=== PATIENT | female | born 1955 | race Caucasian/White ===

== ENCOUNTER 2020-05-03 06:10 | Day surgery (SDC) | payer OTHER, SELFPAY ==
[~2020-05-03] VITALS: Ht 154.9 cm; Wt 126.1 kg
[2020-05-03] MEDS ORDERED: CEFAZOLIN SOD 1 GM in D5W 50 ML IV ONE (07:00)
[2020-05-03] MEDS ORDERED: DESFLURANE 15 MIN GAS INH ONE (08:56)
[2020-05-03] MEDS ORDERED: DEXAMETHASONE SOD PHOSPHATE 4 MG/ML VIAL IVP ONE ×2 (08:56)
[2020-05-03] MEDS ORDERED: KETOROLAC TROMETHAMINE 30 MG VIAL IVP ONE (08:56)
[2020-05-03] MEDS ORDERED: ROCURONIUM BROMIDE 10 MG/ML (ZEMURON) IV ONE (08:56)
[2020-05-03] MEDS ORDERED: LR 1,000 ML IV.SOLN IV ONE (08:56)
[2020-05-03] MEDS ORDERED: fentaNYL CITRATE 250 MCG/5 ML AMP IV ONE (08:56)
[2020-05-03] MEDS ORDERED: ISOSULFAN BLUE 5 ML VIAL (LYMPHAZURIN) INJ ONE (08:56)
[2020-05-03] MEDS ORDERED: BUPIVACAINE /PF 0.25% 30 ML VIAL INJ ONE (08:56)
[2020-05-03] MEDS ORDERED: SUGAMMADEX SODIUM 200 MG/2 ML VIAL IV ONE (08:56)
[2020-05-03] MEDS ORDERED: NS 1000 ML IV.SOLN IV ONE (08:56)
[2020-05-03] MEDS ORDERED: MIDAZOLAM HCL 5 MG/5 ML VIAL IVP ONE (08:56)
[2020-05-03] MEDS ORDERED: ONDANSETRON HCL 4 MG/2 ML VIAL IVP ONE (08:56)
[2020-05-03] MEDS ORDERED: PROPOFOL 200MG/ 20ML VIAL (DIPRIVAN) IV ONE ×2 (08:56)
[2020-05-03] MEDS ORDERED: HYDROmorphone 1 MG INJ. 1 MG/ML CARTRIDGE IVP PRN ×2 (10:00)
[2020-05-03] MEDS ORDERED: METOCLOPRAMIDE HCL 10 MG/2 ML VIAL IVP PRN (10:00)
[2020-05-03] MEDS ORDERED: MEPERIDINE HCL/PF 25 MG/ML DISP.SYRIN IVP PRN (10:00)
[2020-05-03] MEDS ORDERED: LR 1,000 ML IV SCH (10:00)
[2020-05-03] MEDS ORDERED: MIDAZOLAM HCL 2 MG/2 ML VIAL (VERSED) IVP PRN (10:00)
[2020-05-03] MEDS ORDERED: LABETALOL 100 MG/ 20ML VIAL IVP PRN (10:00)
[2020-05-03] MEDS ORDERED: hydrALAZINE HCL 20 MG/ML VIAL IVP PRN (10:00)
[2020-05-03] MEDS ORDERED: ONDANSETRON HCL 4 MG/2 ML VIAL IVP PRN (10:00)
[2020-05-03] MEDS ORDERED: HYDROcodone/ACETAMIN 5-325 MG TAB (NORCO/ VICODIN) PO PRN (11:00)
[2020-05-03] MEDS ORDERED: D5/0.45 NS 1,000 ML IV SCH (11:00)
[2020-05-03 13:03] VITALS: BP_SYST 127
== END 2020-05-03 12:45 | disposition home or self-care (01) ==
LOC: SDS 06:10 → SMU 06:10 → EDSTATUS 09:30 → SDS 12:45
PROVIDERS: ATTEND Colon & Rectal Surgery
DX: C50.912 Malignant neoplasm of unspecified site of left female breast (principal); G47.33 Obstructive sleep apnea (adult) (pediatric); E03.9 Hypothyroidism, unspecified; E66.01 Morbid (severe) obesity due to excess calories; Z68.42 Body mass index [BMI] 45.0-49.9, adult; E78.00 Pure hypercholesterolemia, unspecified; Z20.828 Contact with and (suspected) exposure to other viral communicable diseases; Z79.899 Other long term (current) drug therapy
CPT/HCPCS: 19301; 38525; 78195; 88305; 88307; A9541; C9399; J0690; J1100; J1885; J2250; J2405; J2704; J3010; J3490; J7030; J7060; J7120; Q9968; U0003